=== PATIENT | female | born 1975 ===

== ENCOUNTER 2017-01-30 02:49 | Emergency (ER) | payer SELFPAY ==
[2017-01-30 02:50] VITALS: BMI 30.7
[2017-01-30] MEDS ORDERED: Sodium Chloride 0.9% 1,000 ML IV STA (03:30)
[2017-01-30 04:29] LABS: PARTIAL THROMBOPLASTIN TIME 25.9 SECONDS (23.3-32.5)
[2017-01-30 04:31] LABS: ALB/GLOB RATIO 1.4 (1.0-2.1); ALKALINE PHOSPHATASE 79 U/L (38-126); ALT/SGPT 82 U/L (9-52); AST/SGOT 86 U/L (14-36); BILIRUBIN,TOTAL 0.5 mg/dl (0.2-1.3); BLOOD UREA NITROGEN 11 mg/dl (7-17); CALCIUM 8.9 mg/dL (8.4-10.2); CARBON DIOXIDE 24 mmol/L (22-30); CHLORIDE 101 mmol/L (98-107); GFR AFRICAN-AMERICAN > 60; GLUCOSE,RANDOM 140 mg/dL (65-105); POTASSIUM 3.7 MMOL/L (3.6-5.0); SODIUM 137 mmol/l (132-148); TOTAL PROTEIN 7.6 G/DL (6.3-8.2)
[2017-01-30 04:42] LABS: BASO % 0.6 % (0.0-2.0); EOS % 0.4 % (0.0-4.0); HEMATOCRIT 27.2 % (34.0-47.0); LYMPH # 0.5 K/uL (1.0-4.3); LYMPH % 5.9 % (20.0-40.0); MEAN CELL VOLUME 78.8 fl (81.0-99.0); MEAN CORPUSCULAR HEMOGLOBIN 27.1 pg (27.0-31.0); MEAN CORPUSCULAR HGB CONC 34.3 g/dL (33.0-37.0); MEAN PLATELET VOLUME 7.7 fl (7.2-11.7); MONO # 0.6 K/uL (0.0-0.8); MONO % 6.7 % (0.0-10.0); NEUT # 7.3 K/uL (1.8-7.0); NEUT % 86.4 % (50.0-75.0); PLATELET COUNT 258 K/uL (130-400); RED CELL DISTRIBUTION WIDTH 15.5 % (11.5-14.5); WHITE BLOOD COUNT 8.4 K/uL (4.8-10.8)
[2017-01-30 05:49] VITALS: BP 129/78; PULSE 84; RESP 17; TEMP 98.2; O2SAT 99
--- NOTE | 2017-01-30 05:51 | ED PDOC ---
HPI: Female Pain Time Seen by Provider: 01/30/17 03:29 Chief Complaint (Nursing): Female Genitourinary Chief Complaint (Provider): Female Genitourinary History Per: Patient History/Exam Limitations: no limitations Onset/Duration Of Symptoms: Days ([id number]) Current Symptoms Are (Timing): Still Present Associated Symptoms: denies: Fever, Back Pain, Chest Pain Additional History Per: Patient Additional Complaint(s): Nahomi Tamayo is a 41 year old female with a past medical history of a cholecystectomy who presents to the ED with a chief complaint of vaginal bleeding. Denies any fever, back pain, chest pain, cough, or SOB. Patient admits to feeling weak. Abnormal Vaginal Bleeding: Yes Past Medical History Reviewed: Historical Data, Nursing Documentation, Vital Signs Vital Signs: Last Vital Signs Temp 98.2 F 01/30/17 05:48 Pulse 84 01/30/17 05:48 Resp 17 01/30/17 05:48 BP 129/78 01/30/17 05:48 Pulse Ox 99 01/30/17 05:48 - Medical History PMH: No Chronic Diseases - Surgical History Surgical History: Cholecystectomy - Family History Family History: States: Unknown Family Hx - Social History Current smoker - smoking cessation education provided: No Ex-Smoker (has not smoked in the last 12 months): No Alcohol: None Drugs: Denies - Immunization History Hx Tetanus Toxoid Vaccination: No Hx Influenza Vaccination: No Hx Pneumococcal Vaccination: No - Home Medications Home Medications: Ambulatory Orders Medication Instructions Recorded MedroxyPROGESTERone [Provera] 10 mg PO QAM #1 tab 01/30/17 - Allergies Allergies/Adverse Reactions: Allergies Allergy/AdvReac Type Severity Reaction Status Date / Time No Known Allergies Allergy Verified 07/04/14 10:03 Review of Systems ROS Statement: Except As Marked, All Systems Reviewed And Found Negative Constitutional: Negative for: Fever Cardiovascular: Negative for: Chest Pain Respiratory: Negative for: Cough, Shortness of Breath Gastrointestinal: Negative for: Abdominal Pain Musculoskeletal: Negative for: Back Pain Neurological: Positive for: Weakness Physical Exam - Reviewed Nursing Documentation Reviewed: Yes Vital Signs Reviewed: Yes - Physical Exam Appears: Positive for: Well, Non-toxic, No Acute Distress Head Exam: Positive for: ATRAUMATIC, NORMAL INSPECTION, NORMOCEPHALIC Skin: Positive for: Normal Color, Warm Eye Exam: Positive for: Normal appearance, EOMI, PERRL ENT: Positive for: Normal ENT Inspection Neck: Positive for: Normal, Painless ROM Cardiovascular/Chest: Positive for: Regular Rate, Rhythm, Murmur. Negative for : Tachycardia Respiratory: Positive for: Normal Breath Sounds. Negative for: Wheezing, Respiratory Distress Gastrointestinal/Abdominal: Positive for: Normal Exam, Soft. Negative for: Tenderness Pelvic Exam: Positive for: External Exam Normal Back: Positive for: Normal Inspection Rectal: Positive for: Deferred Extremity: Positive for: Normal ROM Lymphatic: Positive for: Deferred Neurologic/Psych: Positive for: Alert, Oriented - Laboratory Results Result Diagrams: 01/30/17 04:00 01/30/17 03:35 - ECG O2 Sat by Pulse Oximetry: 99 (RA) Pulse Ox Interpretation: Normal Medical Decision Making Medical Decision Makin: Initial Impression: Weakness with heavy menstrual flow. Initial Plan: * ABO/RH Type * Type and Screen * CMP * Urine pregnany * CBC * PTT * Prothrombin * Sodium chrloride 1000ml * Pelvis/Transvaginal US * Transvaginal US * Re-Eval 0610: EXAM: US Pelvis, Transvaginal CLINICAL HISTORY: 41 years old, female; Signs and symptoms; Menstruation abnormalities; Excessive menstruation; With irregular cycle TECHNIQUE: Real-time transvaginal pelvic ultrasound (complete) with image documentation. Transvaginal imaging was used for better evaluation of the endometrium and adnexa. EXAM DATE/TIME: Exam ordered 01/30/2017 3:42 AM COMPARISON: No relevant prior studies available. FINDINGS: Uterus/cervix: Uterus measures 8.9 a 4.8 x 6.1 cm. Endometrium is 13 mm noted to be thickened and inhomogeneous in echogenicity. Best appreciated series on image 26, cannot exclude some asymmetric thickening of the endometrium No myometrial mass. Right ovary: Right ovary measures 3.6 x 2.8 x 3.0 cm. The right ovary contains a 2.8 cm cystic finding which appears relatively simple, may represent a dominant follicle. Normal blood flow. Left ovary: Left ovary measures 3.0 x 1.6 2.6 cm. Left ovary contains a 1.6 cm cystic finding which is mildly hypoechoic. Normal blood flow. Free fluid: No free fluid. Bladder: Empty bladder which cannot be evaluated with this probe. Other findings: History is provided of bleeding x10 days and an irregular menses. IMPRESSION: Endometrium is heterogeneously thickened, differential includes endometrial hyperplasia or polyps, other neoplasm not excluded. Further investigation advised. Bilateral ovarian cystic findings. No evidence of ovarian torsion. For a female of reproductive age, cysts without specific suspicious features and of less than 3cm are deemed as per ACR criteria as probably benign. Labs reviewed show no clinically significant abnormalities with exception of mild anemia. Diagnosis: Menorrhagia Patient is stable for discharge. Referred to [facility]. RX for Provera provided Scribe~Attestation: Documented by Timo Mina acting as a~scribe~for Chris Escobar MD. ~ Provider~Scribe~Attestation: All medical record entries made by the~Scribe~were at my direction and personally dictated by me. I have reviewed the chart and agree that the record accurately reflects my personal performance of the history, physical exam, medical decision making, and the department course for this patient. I have also personally directed, reviewed, and agree with the discharge instructions and disposition. Disposition - Clinical Impression Clinical Impression: Menorrhagia - Patient ED Disposition Is Patient to be Admitted: No Counseled Patient/Family Regarding: Studies Performed, Diagnosis, Need For Followup, Rx Given - Disposition Referrals: [facility] [Outside] [facility] [Outside[facility] Disposition: Routine/Home Disposition Time: 06:00 Condition: STABLE Prescriptions: MedroxyPROGESTERone [Provera] 10 mg PO QAM #1 tab Instructions: Menorrhagia (ED) Print Language: PALESTINIAN
[2017-01-30 06:27] LABS: NEUTROPHIL 89 % (42-75); TOTAL CELLS COUNTED 100
[2017-01-30 06:31] LABS: PLATELET CLUMPS PRESENT
--- NOTE | 2017-01-30 12:57 | US ---
HISTORY: menorrhagia COMPARISON: None available. TECHNIQUE: Transvaginal pelvic ultrasound FINDINGS: UTERUS: Measures 8.9 x 4.8 x 6.1 cm. Anteverted. ENDOMETRIUM: Heterogeneous endometrium measures approximately 1.3 cm in diameter. CERVIX: Nabothian cyst measures approximately 0.8 x 0.7 x 0.7 cm. RIGHT OVARY: Measures 3.6 x 2.8 x 3.0 cm. Blood flow is demonstrated. 2.8 x 1.9 x 2.7 cm follicle/cyst. LEFT OVARY: Measures 3.0 x 1.6 x 2.6 cm. Blood flow is demonstrated. 1.6 x 1.0 x 1.1 cm follicle/cyst. FREE FLUID: No significant free fluid noted. OTHER FINDINGS: None. IMPRESSION: Bilateral follicles/cysts. Heterogeneous appearance of the endometrium which measures approximately 1.3 cm in diameter. Correlate with phase of menstrual cycle. Endometrial hyperplasia, polyps, or neoplasm cannot be entirely excluded. Further evaluation including 6 week ultrasound follow-up recommended as indicated. Preliminary impression was provided by virtual radiologic.
[2017-01-30 15:16] LABS: HEMATOCRIT 27.2 % (34.0-47.0); WHITE BLOOD COUNT 8.4 K/uL (4.8-10.8)
[2017-01-30 15:17] LABS: BASO % 0.6 % (0.0-2.0); EOS % 0.4 % (0.0-4.0); LYMPH # 0.5 K/uL (1.0-4.3); LYMPH % 5.9 % (20.0-40.0); MEAN CELL VOLUME 78.8 fl (81.0-99.0); MEAN CORPUSCULAR HEMOGLOBIN 27.1 pg (27.0-31.0); MEAN CORPUSCULAR HGB CONC 34.3 g/dL (33.0-37.0); MEAN PLATELET VOLUME 7.7 fl (7.2-11.7); MONO # 0.6 K/uL (0.0-0.8); MONO % 6.7 % (0.0-10.0); NEUT # 7.3 K/uL (1.8-7.0); NEUT % 86.4 % (50.0-75.0); RED CELL DISTRIBUTION WIDTH 15.5 % (11.5-14.5)
== END 2017-01-30 05:30 | disposition home or self-care (01) ==
LOC: H.ER 02:49
DX: N92.0 Excessive and frequent menstruation with regular cycle (principal); R53.1 Weakness; N83.201 Unspecified ovarian cyst, right side; N83.202 Unspecified ovarian cyst, left side; Z87.891 Personal history of nicotine dependence
CPT/HCPCS: 76830; 80053; 81025; 85025; 85610; 85730; 86850; 86900; 96360; 99284; J7040

== ENCOUNTER 2018-03-23 23:58 | Emergency (ER) | payer OTHER, SELFPAY ==
[2018-03-24 06:20] VITALS: BP 136/84; PULSE 75; TEMP 98.2
== END 2018-03-24 01:27 | disposition home or self-care (01) ==
LOC: H.EROB2 23:58
DX: O36.8130 Decreased fetal movements, third trimester, not applicable or unspecified (principal); Z3A.37 37 weeks gestation of pregnancy

== ENCOUNTER 2018-04-06 08:29 | Inpatient (IN) | payer OTHER ==
[2018-04-06 08:39] VITALS: BMI 33.0
[2018-04-06] MEDS: Lactated Ringer's 1,000 ML IV ONE ×2 (09:30→10:30)
[2018-04-06 09:52] LABS: BASO % 0.4 % (0.0-2.0); EOS % 0.2 % (0.0-4.0); HEMOGLOBIN 11.9 g/dL (12.0-16.0); LYMPH # 1.3 K/uL (1.0-4.3); LYMPH % 13.6 % (20.0-40.0); MEAN CORPUSCULAR HEMOGLOBIN 31.1 pg (27.0-31.0); MEAN CORPUSCULAR HGB CONC 36.2 g/dL (33.0-37.0); MEAN PLATELET VOLUME 9.1 fl (7.2-11.7); MONO # 0.4 K/uL (0.0-0.8); MONO % 4.1 % (0.0-10.0); NEUT # 7.8 K/uL (1.8-7.0); NEUT % 81.7 % (50.0-75.0); NRBC % 0.1 % (0.0-0.0); RBC 3.84 Mil/uL (3.80-5.20); RED CELL DISTRIBUTION WIDTH 16.1 % (11.5-14.5); WHITE BLOOD COUNT 9.6 K/uL (4.8-10.8)
[2018-04-06] MEDS ORDERED: Oxytocin 30 units/LR 500ML 30 U/500 ML BAG IV ONE (10:03)
[2018-04-06] MEDS ORDERED: OXYTOCIN/0.9 % NS 20 UNIT/1,000 ML BAG IV SCH ×3 (10:15→16:31)
[2018-04-06] MEDS ORDERED: Lactated Ringer's 1,000 ML IV SCH (10:30)
[2018-04-06] MEDS ORDERED: ceFAZolin IV 2 gm in Dextrose 2 GM/50 ML BAG IVPB ONE (10:45)
[2018-04-06] MEDS ORDERED: Morphine 1 mg/ml preservative-free Inj(Duramorph) ONE (11:18)
[2018-04-06] MEDS ORDERED: Sodium Chloride 0.9% 10 ML IV ONE (11:18)
[2018-04-06] MEDS ORDERED: ePHEDrine 50 mg/ml Inj ONE (11:18)
--- NOTE | 2018-04-06 13:00 | OBDS ---
DELIVERY PERSONNEL Delivery Doctor: Karely Espinoza DO MATERNAL INFORMATION Provider Comments: LFT C/S. Pt delivered viable with Apgars 9/9, normal uterus, tubes and ov maikol bilaterally. Moderate abd/pelvic adhesions. EBL 800cc IVF 1400cc LR UO 300cc clear No complications Pt tolerated delivery well. refer to dictation LABOR SUMMARY EDC: 04/13/2018 00:00 No. Babies in Womb: 1 LABOR INFORMATION Group B Beta Strep: Negative STAGES OF LABOR Stage 3 hrs: 0 Stage 3 min: 1 CSECTION DELIVERY Primary Indication: Transverse/Complex Presentation CSection Incision: Lower Uterine Transverse Uterine Closure: Double-layer closure BABY A INFORMATION Infant Delivery Date/Time: 04/06/2018 11:57 Method of Delivery: Forceps: N/A Vacuum Extraction: N/A SHOULDER DYSTOCIA BABY A Delivery Date/Time: 04/06/2018 11:57 PLACENTA INFORMATION BABY A Placenta Delivery Time : 04/06/2018 11:58 Placenta Method of Delivery: Expressed Placenta Status: Delivered SCORES BABY A Heart Rate 1 min: >100 bpm Resp Effort 1 min: Good Cry Reflex Irritability 1 min: Cough or Sneeze or Pulls Away Muscle Tone 1 min: Active Motion Color 1 min: Body [place], Extremities Blue Resuscitation Effort 1 min: N/A SCORE 1 MIN: 9 Heart Rate 5 min: >100 bpm Resp Effort 5 min: Good Cry Reflex Irritability 5 min: Cough or Sneeze or Pulls Away Muscle Tone 5 min: Active Motion Color 5 min: Body [place], Extremities Blue Resuscitation Effort 5 min: N/A SCORE 5 MIN: 9 INFORMATION BABY A Gestational Age at Delivery: 39.0 Gestational Status: Term Infant Outcome : Liveborn Condition : Stable Sex: Female WEIGHT/LENGTH BABY A Birthweight (gms): 3920 Infant Weight (lb): 8 Weight (oz): 10 CORD INFORMATION BABY A No. Cord Vessels: 3 Nuchal Cord : N/A Cord Blood Taken: Yes Infant Suction: Mouth; Nose
[2018-04-06] MEDS ORDERED: Oxycodone/Acetaminophen 5/325 mg Tab PO PRN ×4 (13:51→16:31)
[2018-04-06] MEDS ORDERED: DiphenhydrAMINE 50 mg/ml Inj IVP PRN ×2 (13:53→16:31)
[2018-04-06] MEDS: Lactated Ringer's 1,000 ML IV SCH (17:29)
--- NOTE | 2018-04-07 00:19 | OP ---
PROCEDURE DATE: 04/06/2018 PREOPERATIVE DIAGNOSIS: Transverse presentation at 39 weeks gestational age. POSTOPERATIVE DIAGNOSIS: Transverse presentation at 39 weeks gestational age. PROCEDURE: Primary low flap transverse section via Pfannenstiel incision. OPERATIVE FINDINGS: Viable with Apgars of 9 and 9 in one and five minutes respectively, transverse presentation, normal uterus, normal tubes and ovaries bilaterally, moderate amount of abdominal and pelvic adhesions. ESTIMATED BLOOD LOSS: 800 mL. FLUIDS: 1400 mL lactated Ringer's. URINE OUTPUT: 300 mL of clear urine at the end of procedure. SURGEON: Jacob Anderson M.D. MELTER SUPERVISOR OPEN HEARTH FURNACE: Dr. Ryan Espinoza. Dr. Espinoza was present from the beginning of the procedure to the end of the procedure. Dr. Espinoza was integral in exposing the surgical field, controlling intraoperative bleeding, removal of intraabdominal adhesions, and manual delivery of the . COMPLICATIONS: None. ANESTHESIA: Spinal. ANESTHESIOLOGIST: Dr. Armenta. DESCRIPTION OF PROCEDURE: The patient was taken to the operating room where spinal anesthesia was found to be adequate. The patient was prepped and draped in normal sterile fashion in the dorsal supine position with leftward tilt. A Pfannenstiel skin incision was made with the scalpel. This was carried down through to the underlying layer of fascia with the scalpel. Midline defect was made in the fascial layer with scalpel. The fascial incision was then extended bilaterally with curved Strauss scissors. The fascial layer was from the underlying rectus muscles, both bluntly and sharply with curved Strauss scissors. The rectus muscles were at the midline. The peritoneum was then identified, tented upward with [place] clamps x2, and entered sharply with Metzenbaum scissors. This peritoneal incision was then extended superiorly and inferiorly with good visualization of the urinary bladder. The vesicouterine peritoneum was then identified, tented up with [place] clamps x2, and entered sharply with Metzenbaum scissors. This peritoneal incision was then extended bilaterally with Metzenbaum scissors. The bladder flap was created digitally. The Apryl retractor was placed over the urinary bladder. The uterus was incised with the scalpel. The uterine incision was extended bilaterally bluntly. The was internally rotated to a vertex presentation. The infant's head was delivered atraumatically. Nose and mouth were suctioned with bulb suction. The remainder of the infant was delivered without complication. The cord was clamped and cut. The was handed off to awaiting pediatricians. Cord blood was collected. The placenta was removed manually. The uterus was cleared of all clots and debris. The uterine incision was repaired with 0 Vicryl in a running, locked fashion. The second layer of same suture was used to imbricate the first and to obtain excellent hemostasis. Reinspection of the uterine incision proved excellent hemostasis. The abdomen and pelvis were irrigated with copious amounts of warm normal saline. Reinspection of the uterine incision proved excellent hemostasis. All instruments were removed from the patient. The peritoneal layer was closed with a running stitch of 2-0 chromic. The fascial layer was closed with a running stitch of 0 Vicryl. Subcutaneous tissue was closed with a running stitch of 3-0 plain. The skin was closed with sunny. The patient tolerated the procedure well. All sponge count, lap count, and needle counts were correct x2. The patient was given 2 gm of Ancef just prior to the beginning of the procedure. There were no complications. The patient was taken to the recovery room in awake and stable condition. Jacob Anderson MD
[2018-04-07] MEDS: Lactated Ringer's 1,000 ML IV SCH (00:57)
[2018-04-07 06:17] LABS: MEAN CORPUSCULAR HEMOGLOBIN 30.8 pg (27.0-31.0); MEAN CORPUSCULAR HGB CONC 35.4 g/dL (33.0-37.0); RBC 3.23 Mil/uL (3.80-5.20); RED CELL DISTRIBUTION WIDTH 15.7 % (11.5-14.5); WHITE BLOOD COUNT 11.3 K/uL (4.8-10.8)
[2018-04-07] MEDS ORDERED: Multivitamin With Minerals Tab PO SCH (09:00)
[2018-04-07] MEDS: Multivitamin With Minerals Tab PO SCH (09:23)
--- NOTE | 2018-04-07 11:02 | OBPPN ---
Datetime: 04/07/2018 09:38 PP Pain Prov: Within normal limits PP Nausea Prov: Denies PP Flatus Prov: No PP BM Prov: No PP Heart Prov: Normal PP Lungs Prov: Normal PP Abdomen/Uterus Prov: Normal PP Lochia Prov: Normal PP Extremities Prov: Normal PP C/S Incision Prov: Normal PP Impression Prov: Normal progression PP Plan Prov: Continue present management PP Progress Note Prov: S: Pt is a 42 yo 39 wk s/p C section on 04/06/18 POD 1. Seen and examined at bedside this am. Patient denies any significant overnight events. Reports no pain. OOB/Ambulatio n well without dizziness. Bottle/breast feeding without difficulty. Vomited after eating yesterday w ill try a regular diabetic diet again today. Lochia is similar to menses. Gonsalves just removed haven't voided yet, Patient has not had a bowel movement, and has not passed gas per rectum. Denies fever/chi lls, diarrhea, nausea/vomiting, CP/SOB , lightheadedness. O: BP:130/75, HR:70, RR:20, T 98.5F CBC-10/28.1, blood type: O+, rubella: Immune PHYSICAL EXAM: GEN: AAOx3, Resting comfortably in bed, NAD HEENT: NCAT, White sclera, pink conjunctiva, oral mucosa moist. LUNGS: CTA B/L, no wheezing, rhonchi, or rales, B/L chest rise CVS: RRR, S1, S2, No murmurs, rubs, gallops ABD: ND, +BS, firm fundus @ umbilical level. Soft, appropriate TTP, Dressing covering incision betito an and dry EXT: no edema, negative Amy's sign, calves non tender NEURO/Psych: no gross focal deficit, preserved affect and mood. A/P 42 y/o s/p C -section on 04/06/18 @ 11:57 POD1. Pt afebrile, tolerating pain with medication, will advance regular diet as tolerated, adequate urine output. Encouraged breast feeding and ambulation Ibuprofen 600mg mild pain Percocet 5/325mg 1 tab po q 4h for mod/severe pain PNV 1 tab po daily Colace and Qwflobw23.2mg PO HS for constipation Simethicone for flatulence Post op contraception- OCP F/U 1 wk for wound check 4-6 weeks for post- visit at the [facility] Kalli Issa M.D. PGY-1 Patient was seen and case discussed with Dr. Buenrostro IP PP Procedures: None Vital Signs Provider PP: Reviewed
[2018-04-08] MEDS: Multivitamin With Minerals Tab PO SCH (09:04)
--- NOTE | 2018-04-08 16:19 | OBPPN ---
Datetime: 04/08/2018 07:39 PP Pain Prov: Within normal limits PP Nausea Prov: Denies PP Flatus Prov: Yes PP BM Prov: No PP Heart Prov: Normal PP Lungs Prov: Normal PP Abdomen/Uterus Prov: Normal PP Lochia Prov: Normal PP Extremities Prov: Normal PP C/S Incision Prov: Normal PP Progress Prov: Normal PP Impression Prov: Normal progression PP Plan Prov: Continue present management PP Progress Note Prov: Cyra: [id number] S: Pt is a 42 yo 39 wk s/p C section on 04/06/18 POD 2. Seen and examined at bedside this am. Patient denies any significant overnight events. Reports no pain. OOB/Ambulation well without dizzin ess. Bottle/breast feeding without difficulty. Tolerating diabetic today. Lochia is similar to mense s. Voiding regularly. Patient has not had a bowel movement, is passing gas per rectum. Denies fever/c hills, diarrhea, nausea/vomiting, CP/SOB , lightheadedness. O: BP:123/74, HR:91, T 98.1F CBC-10/28.1, blood type: O+, rubella: Immune PHYSICAL EXAM: GEN: AAOx3, Resting comfortably in bed, NAD HEENT: NCAT, White sclera, pink conjunctiva, oral mucosa moist. LUNGS: CTA B/L, no wheezing, rhonchi, or rales, B/L chest rise CVS: RRR, S1, S2, No murmurs, rubs, gallops ABD: ND +BS, firm fundus @ umbilical level. Soft, appropriate TTP, Incision: clean dry intact no e rythema or drainage EXT: no edema, negative Amy's sign, calves non tender NEURO/Psych: no gross focal deficit, preserved affect and mood. A/P 42 y/o s/p C -section on 04/06/18 @ 11:57 POD2. Pt afebrile, tolerating pain with medication, tolerating regular diet, adequate urine output. Encouraged breast feeding and ambulation Ibuprofen 600mg mild pain Percocet 5/325mg 1 tab po q 4h for mod/severe pain PNV 1 tab po daily Colace and Anxnqrs03.2mg PO HS for constipation Simethicone for flatulence Post op contraception- OCP F/U 1 wk for wound check 4-6 weeks for post- visit at the [facility] Kalli Issa M.D. PGY-1 Patient was seen and case discussed with Dr. Buenrostro IP PP Procedures: None Vital Signs Provider PP: Reviewed; Within Normal Limits
[2018-04-09] MEDS: Multivitamin With Minerals Tab PO SCH (08:18)
--- NOTE | 2018-04-09 10:01 | OBDCSUM ---
Datetime: 04/09/2018 07:10 Discharged to, Provider: Home Follow up at, Provider: [facility] Disch Instr Activity: Normal activity Disch Instr Diet: Regular Discharge Instructions, Provider: Routine instructions given Discharge Diagnosis, Provider: Term Delivered Discharge Time: 04/09/2018 07:10 Follow up in weeks, Provider: 1wk wound check, 4-6 weeks post visit Disch Referrals: None Contraception discussed, Prov: Yes Disch Activity Restrictions: No exercising; No lifting; Minimize stair-climbing; No sexual activity; Nothing in vagina - [place], tampons, douche Discharge Comment, Provider: Discharge Instructions: 1. Encouraged and ambulation 2. vitamin 1 tab po daily 3. Ibuprofen 600mg 1 tab as needed for mild pain 4. Percocet 5/325mg 1 tab as needed for severe pain 5. Senokot 17.2mg as needed for constipation 7. ER precautions: If excessive bleeding or fever without relief from medication, go to ED 8. Avoid stairs, exercising, heavy lifting 9. Nothing in vagina for 4-6weeks 10. Contraception post D/C- OCP 11. F/U at [facility] 1 wk wound check and in 4-6 weeks for post- visit The patient was seen with the resident I agree with the note Contraception after Delivery: Control Pill/Patch
--- NOTE | 2018-04-09 10:01 | OBPPN ---
Datetime: 04/09/2018 06:40 PP Pain Prov: Within normal limits PP Nausea Prov: Denies PP Flatus Prov: Yes PP BM Prov: Yes PP Heart Prov: Normal PP Lungs Prov: Normal PP Abdomen/Uterus Prov: Normal PP Lochia Prov: Normal PP Extremities Prov: Normal PP C/S Incision Prov: Normal PP Progress Prov: Normal PP Impression Prov: Normal progression PP Plan Prov: Continue present management PP Progress Note Prov: Cyra: [id number] S: Pt is a 42 yo 39 wk s/p C section on 04/06/18 POD 3. Seen and examined at bedside this am. Patient denies any significant overnight events. Reports no pain. OOB/Ambulation well without dizzin ess. Bottle/breast feeding without difficulty. Tolerating diabetic today. Lochia is similar to mense s. Voiding regularly. Patient has had a bowel movement, is passing gas per rectum. Denies fever/chill s, diarrhea, nausea/vomiting, CP/SOB ,lightheadedness. O: BP:136/70, HR:83, T 98F CBC-10/28.1, blood type: O+, rubella: Immune PHYSICAL EXAM: GEN: AAOx3, Resting comfortably in bed, NAD HEENT: NCAT, White sclera, pink conjunctiva, oral mucosa moist. LUNGS: CTA B/L, no wheezing, rhonchi, or rales, B/L chest rise CVS: RRR, S1, S2, No murmurs, rubs, gallops ABD: ND +BS, firm fundus @ umbilical level. Soft, appropriate TTP, Incision: clean dry intact no e rythema or drainage EXT: no edema, negative Amy's sign, calves non tender NEURO/Psych: no gross focal deficit, preserved affect and mood. A/P 42 y/o s/p C -section on 04/06/18 @ 11:57 POD3. Pt afebrile, tolerating pain with medication, tolerating regular diet, adequate urine output. Encouraged breast feeding and ambulation Ibuprofen 600mg 1 tab po q 6hr mild pain Percocet 5/325mg 1 tab po q 6h for mod/severe pain PNV 1 tab po daily Gjkxorl56.2mg PO HS for constipation Post op contraception- OCP F/U 1 wk for wound check 4-6 weeks for post- visit at the [facility] Kalli Issa M.D. PGY-1 Patient was seen and case discussed with Dr. Buenrostro The patient was seen with the resident I agree with the note IP PP Procedures: None Vital Signs Provider PP: Reviewed; Within Normal Limits
[2018-04-09 19:36] VITALS: BP 142/85; PULSE 87; RESP 20; TEMP 98.2; O2SAT 98
--- NOTE | 2018-04-16 16:58 | OBADHP ---
Datetime: 04/06/2018 09:13 Admit Comment, IP Provider: Oziel interpretation- [id number] PNP: Dr. Snowden at [facility] 42 yo at 39 weeks is presenting for scheduled . Patient reports contractions every 3 0 minutes, 2-11/21, FM+, no loss of fluid or vaginal bleeding. OBGYNhx: x 2 (2009, ; 2007-) PMH: gestation diabetes tx with diet Famhx: neg Sochx: no tobacco, EtOH or drugs Allergies: none ROS: neg for cp, sob or dysuria Labs: AFP +, O+, antibodies neg, GBS neg PE: Gen: well appearing female in no acute distress Cardio: s1s2 no murmurs Resp: clear b/l Abd: BS + Ext: calves nontender Ultrasound: Tranverse lie noted on ultrasound A/P:42 yo is presenting for scheduled . Admit to unit, protocol initiated. Case discussed with Attending Kianna Haider PGY-1 OB Attending note - agree with PGY1 note MAHNDO Extremities - PN: Normal Abdomen - PN: Normal Lungs - PN: Normal Heart - PN: Normal General - PN: Normal FHR - Baseline A Provider: 140 Gestation - Est Wks by US: 39.0 IP Hx Assessment: The History has been Reviewed and is Current Vital Signs Provider: Reviewed; Within Normal Limits IP Chief Complaint: Scheduled Section NICHD Variability Prov Fetus A: Moderate 6-25bpm NICHD Accel Fetus A IP Provider: [id number] NICHD Decel Fetus A IP Provider: None EGA AdmitDate IP: 39.1 IP Adm Impression: Term, intrauterine IP Admit Plan: Admit to unit Datetime: 03/24/2018 01:47 Dilatation, Provider: 1
== END 2018-04-09 13:00 | disposition home or self-care (01) | DRG 371 ==
LOC: H.OB/GYN 08:40
PROVIDERS: ADMIT Obstetrics & Gynecology; ATTEND Obstetrics & Gynecology
PROC: 10D00Z1 Extraction of Products of Conception, Low, Open Approach (ICD-10-PCS; principal; 2018-04-06)
PROC: 4A1HXCZ Monitoring of Products of Conception, Cardiac Rate, External Approach (ICD-10-PCS; 2018-04-06)
DX: O32.2XX0 Maternal care for transverse and oblique lie, not applicable or unspecified (principal); Z3A.39 39 weeks gestation of pregnancy; Z37.0 Single live birth; O99.89 Other specified diseases and conditions complicating pregnancy, childbirth and the puerperium; N73.6 Female pelvic peritoneal adhesions (postinfective)